=== PATIENT | male | born 1990 | race Caucasian/White ===

== ENCOUNTER 2017-12-16 23:15 | Emergency (ER) | payer SELFPAY ==
[~2017-12-16] VITALS: Ht 175.3 cm; Wt 90.0 kg
[~2017-12-16 23:15] MED LIST: NO MEDS
[2017-12-17 00:17] LABS: HEMATOCRIT 44.5 % (39.0-50.0); HEMOGLOBIN 16.2 g/dl (14.0-18.0); IMMATURE GRANULOCYTES 0.3 % (0.0-5.0); MEAN CELL VOLUME 90.6 fL CALC (80.0-100.0); MEAN CORPUSCULAR HGB CONC 36.4 g/L CALC (32.0-36.0); NEUT# 8.24 thou/uL (1.82-7.42); RED BLOOD COUNT 4.91 mill/uL (4.70-6.10); RED CELL DISTRI WIDTH 12.4 % (11.5-15.5)
[2017-12-17 00:19] LABS: BARBITURATES NEGATIVE (NEGATIVE); COCAINE NEGATIVE (NEGATIVE); METHADONE NEGATIVE (NEGATIVE); TETRAHYDROCANNABIONOL POSITIVE (NEGATIVE); TRICYLIC ANTIDEPRESSANTS NEGATIVE (NEGATIVE)
[2017-12-17 00:20] LABS: OXCYCODONE NEGATIVE (NEGATIVE); URINE BILIRUBIN - DIPSTICK NEGATIVE (NEGATIVE); URINE BLOOD DIPSTICK NEGATIVE (NEGATIVE); URINE COLOR YELLOW; URINE GLUCOSE - DIPSTICK NEGATIVE (NEGATIVE); URINE KETONE NEGATIVE (NEGATIVE); URINE LEUK ESTERASE NEGATIVE (NEGATIVE); URINE NITRITE - DIPSTICK NEGATIVE (Negative); URINE PROTEIN - DIPSTICK NEGATIVE (NEG-TRACE); URINE SPECIFIC GRAVITY <=1.005; URINE UROBILINOGEN - DIPSTICK 0.2 E.U./dL (0.2)
[2017-12-17 00:21] LABS: URINE CLARITY CLEAR
[2017-12-17 00:31] VITALS: BP 141/86
[2017-12-17 00:31] LABS: ALBUMIN 4.5 g/dL (3.2-5.0); ALKALINE PHOSPHATASE 91 u/l (38-126); ANION GAP 18 (6-22 (CALC)); BILIRUBIN, TOTAL 0.9 mg/dL (0.0-1.4); BUN 9 mg/dL (9-20); BUN/CREATININE RATIO 12 (12-20 (CALC)); CARBON DIOXIDE 22 mmol/l (22-30); CHLORIDE 102 mmol/l (95-108); CREATININE 0.8 mg/dL (0.7-1.3); ETHYL ALCOHOL 0 mg/dl (0-30); GFR > 60 ML/MIN (>=60 (CALC)); GFR FOR AFR.AMER. > 60 ML/MIN (>=60 (CALC)); POTASSIUM 3.1 mmol/l (3.5-5.1); SGOT/AST 22 u/l (17-59); SGPT/ALT 28 u/l (21-72); SODIUM 138 mmol/l (137-146); TOTAL PROTEIN 7.7 g/dL (6.3-8.2)
[2017-12-17 00:42] LABS: MYOGLOBIN 75 ng/mL (0 - 121)
[2017-12-17] MEDS ORDERED: ATIVAN0.5 MG PO (16:46)
== END 2017-12-17 00:28 | disposition left against medical advice (07) | DRG 894 ==
LOC: ED 23:15
PROVIDERS: Emergency Medicine
DX: F15.10 Other stimulant abuse, uncomplicated (principal); R00.2 Palpitations; F17.210 Nicotine dependence, cigarettes, uncomplicated; Z91.19 Patient's noncompliance with other medical treatment and regimen

== ENCOUNTER 2017-12-17 15:56 | Emergency (ER) | payer SELFPAY ==
[~2017-12-17] VITALS: Ht 175.3 cm; Wt 64.0 kg
[2017-12-17] MEDS ORDERED: ATIVAN0.5 MG PO (16:46)
[2017-12-17 16:49] VITALS: BP 115/83
[2017-12-17 17:03] LABS: URINE BLOOD DIPSTICK NEGATIVE (NEGATIVE); URINE COLOR YELLOW; URINE GLUCOSE - DIPSTICK NEGATIVE (NEGATIVE); URINE KETONE 15 mg/dL (NEGATIVE); URINE LEUK ESTERASE NEGATIVE (NEGATIVE); URINE NITRITE - DIPSTICK NEGATIVE (Negative); URINE PROTEIN - DIPSTICK TRACE mg/dL (NEG-TRACE); URINE SPECIFIC GRAVITY 1.025
[2017-12-17 17:05] LABS: URINE BILIRUBIN - DIPSTICK SMALL (NEGATIVE); URINE CLARITY CLEAR
[2017-12-17 17:15] LABS: COCAINE NEGATIVE (NEGATIVE); METHADONE NEGATIVE (NEGATIVE); TETRAHYDROCANNABIONOL POSITIVE (NEGATIVE)
[2017-12-17 17:16] LABS: BARBITURATES NEGATIVE (NEGATIVE); OXCYCODONE NEGATIVE (NEGATIVE); TRICYLIC ANTIDEPRESSANTS NEGATIVE (NEGATIVE)
== END 2017-12-17 17:11 | disposition left against medical advice (07) | DRG 894 ==
LOC: ED 15:56
PROVIDERS: Emergency Medicine
DX: F15.180 Other stimulant abuse with stimulant-induced anxiety disorder (principal); F12.180 Cannabis abuse with cannabis-induced anxiety disorder; F17.210 Nicotine dependence, cigarettes, uncomplicated; Z91.19 Patient's noncompliance with other medical treatment and regimen

== ENCOUNTER 2020-08-20 14:30 | Emergency (ER) | payer SELFPAY ==
[~2020-08-20 14:30] MED LIST changes: +ATIVAN0.5 MG PO
[2020-08-20 15:00] VITALS: BP 171/101
== END 2020-08-20 14:50 | disposition left against medical advice (07) | DRG 313 ==
LOC: ED 14:30
DX: R07.9 Chest pain, unspecified (principal); F17.200 Nicotine dependence, unspecified, uncomplicated; Z63.8 Other specified problems related to primary support group; Z91.19 Patient's noncompliance with other medical treatment and regimen

== ENCOUNTER 2020-10-28 10:01 | Emergency (ER) | payer SELFPAY ==
[~2020-10-28] VITALS: Ht 175.3 cm; Wt 63.6 kg
[2020-10-28 10:32] LABS: URINE BILIRUBIN - DIPSTICK NEGATIVE (NEGATIVE); URINE BLOOD DIPSTICK NEGATIVE (NEGATIVE); URINE COLOR YELLOW; URINE GLUCOSE - DIPSTICK NEGATIVE (NEGATIVE); URINE KETONE TRACE mg/dL (NEGATIVE); URINE LEUK ESTERASE NEGATIVE (NEGATIVE); URINE PH 6.5 (4.5-8.0); URINE PROTEIN - DIPSTICK NEGATIVE (NEG-TRACE); URINE SPECIFIC GRAVITY <=1.005; URINE UROBILINOGEN - DIPSTICK 0.2 E.U./dL (0.2)
[2020-10-28 10:41] LABS: URINE NITRITE - DIPSTICK NEGATIVE (Negative)
[2020-10-28 10:45] LABS: HEMATOCRIT 43.6 % (39.0-50.0); HEMOGLOBIN 15.1 g/dl (14.0-18.0); IMMATURE GRANULOCYTES 0.3 % (0.0-5.0); MEAN CORPUSCULAR HGB 31.9 pG CALC (26.0-32.0); MEAN CORPUSCULAR HGB CONC 34.6 g/dL CAL (32.0-36.0); NEUT# 6.17 thou/uL (1.82-7.42); RED BLOOD COUNT 4.74 mill/uL (4.70-6.10); RED CELL DISTRI WIDTH 12.3 % (11.5-15.5)
[2020-10-28 10:46] LABS: ALBUMIN 3.9 g/dL (3.2-5.0); ALKALINE PHOSPHATASE 72 u/l (38-126); ANION GAP 15 (6-22 (CALC)); BILIRUBIN, TOTAL 0.8 mg/dL (0.0-1.4); BUN 13 mg/dL (9-20); BUN/CREATININE RATIO 16 (12-20 (CALC)); CARBON DIOXIDE 21 mmol/l (22-30); CHLORIDE 101 mmol/l (95-108); CPK 123 u/l (52-200); CREATININE 0.8 mg/dL (0.7-1.3); ETHYL ALCOHOL 0 mg/dl (0-30); GFR > 60 ML/MIN (>=60 (CALC)); GFR FOR AFR.AMER. > 60 ML/MIN (>=60 (CALC)); LIPASE 52 u/l (23-300); SGOT/AST 20 u/l (17-59); SODIUM 133 mmol/l (137-146); TOTAL PROTEIN 6.9 g/dL (6.3-8.2)
[2020-10-28 11:16] LABS: TSH, 3RD GENERATION 0.81 uIU/mL (0.47 - 4.68)
[2020-10-28] MEDS ORDERED: K-TAB20 MEQ PO (11:23)
[2020-10-28 12:20] VITALS: BP 140/83
== END 2020-10-28 12:29 | disposition home or self-care (01) | DRG 897 ==
LOC: ED 10:01
PROVIDERS: Family Medicine
DX: F15.951 Other stimulant use, unspecified with stimulant-induced psychotic disorder with hallucinations (principal); F12.951 Cannabis use, unspecified with psychotic disorder with hallucinations; F14.951 Cocaine use, unspecified with cocaine-induced psychotic disorder with hallucinations; E87.6 Hypokalemia; F17.200 Nicotine dependence, unspecified, uncomplicated

== ENCOUNTER 2021-02-15 09:52 | Emergency (ER) | payer SELFPAY ==
[~2021-02-15] VITALS: Ht 175.3 cm; Wt 62.0 kg
[~2021-02-15 09:52] MED LIST changes: +K-TAB20 MEQ PO
[2021-02-15 10:25] LABS: URINE BILIRUBIN - DIPSTICK NEGATIVE (NEGATIVE); URINE BLOOD DIPSTICK NEGATIVE (NEGATIVE); URINE COLOR YELLOW; URINE GLUCOSE - DIPSTICK NEGATIVE (NEGATIVE); URINE KETONE NEGATIVE (NEGATIVE); URINE LEUK ESTERASE NEGATIVE (NEGATIVE); URINE PH 7.5 (4.5-8.0); URINE PROTEIN - DIPSTICK TRACE mg/dL (NEG-TRACE); URINE UROBILINOGEN - DIPSTICK 0.2 E.U./dL (0.2)
[2021-02-15 10:26] LABS: HEMATOCRIT 44.7 % (39.0-50.0); HEMOGLOBIN 15.2 g/dl (14.0-18.0); MEAN CELL VOLUME 96.8 fL CALC (80.0-100.0); MEAN CORPUSCULAR HGB 32.9 pG CALC (26.0-32.0); NEUT# 3.91 thou/uL (1.82-7.42); RED BLOOD COUNT 4.62 mill/uL (4.70-6.10); RED CELL DISTRI WIDTH 12.5 % (11.5-15.5)
[2021-02-15 10:27] LABS: URINE NITRITE - DIPSTICK NEGATIVE (Negative)
[2021-02-15 10:36] LABS: ALBUMIN 4.4 g/dL (3.2-5.0); ALKALINE PHOSPHATASE 77 u/l (38-126); BILIRUBIN, TOTAL 1.1 mg/dL (0.0-1.4); BUN 8 mg/dL (9-20); BUN/CREATININE RATIO 11 (12-20 (CALC)); CARBON DIOXIDE 25 mmol/l (22-30); CHLORIDE 103 mmol/l (95-108); CREATININE 0.7 mg/dL (0.7-1.3); ETHYL ALCOHOL 0 mg/dl (0-30); GFR > 60 ML/MIN (>=60 (CALC)); GFR FOR AFR.AMER. > 60 ML/MIN (>=60 (CALC)); MAGNESIUM 2.2 mg/dL (1.6-2.3); SGOT/AST 23 u/l (17-59); SODIUM 137 mmol/l (137-146); TOTAL PROTEIN 7.7 g/dL (6.3-8.2)
[2021-02-15 10:37] LABS: ANION GAP 13 (6-22 (CALC))
[2021-02-15] MEDS ORDERED: VISTARIL 50MG C50 M1 PO (13:21)
[2021-02-15 13:43] VITALS: BP 129/83
== END 2021-02-15 13:43 | disposition home or self-care (01) | DRG 885 ==
LOC: ED 09:52
PROVIDERS: Emergency Medicine
DX: F33.2 Major depressive disorder, recurrent severe without psychotic features (principal); F12.980 Cannabis use, unspecified with anxiety disorder; Z63.5 Disruption of family by separation and divorce
CPT/HCPCS: J2060

== ENCOUNTER 2021-02-17 21:03 | Emergency (ER) | payer SELFPAY ==
[~2021-02-17] VITALS: Ht 175.3 cm; Wt 61.0 kg
[~2021-02-17 21:03] MED LIST changes: +VISTARIL 50MG C50 M1 PO
[2021-02-18 00:06] LABS: IMMATURE GRANULOCYTES 0.2 % (0.0-5.0); MEAN CELL VOLUME 98.1 fL CALC (80.0-100.0); MEAN CORPUSCULAR HGB 32.7 pG CALC (26.0-32.0); MEAN CORPUSCULAR HGB CONC 33.3 g/dL CAL (32.0-36.0); NEUT# 4.04 thou/uL (1.82-7.42); RED BLOOD COUNT 4.28 mill/uL (4.70-6.10); RED CELL DISTRI WIDTH 12.5 % (11.5-15.5)
[2021-02-18 00:10] LABS: URINE BILIRUBIN - DIPSTICK NEGATIVE (NEGATIVE); URINE BLOOD DIPSTICK NEGATIVE (NEGATIVE); URINE COLOR YELLOW; URINE GLUCOSE - DIPSTICK NEGATIVE (NEGATIVE); URINE KETONE NEGATIVE (NEGATIVE); URINE LEUK ESTERASE NEGATIVE (NEGATIVE); URINE NITRITE - DIPSTICK NEGATIVE (Negative); URINE PROTEIN - DIPSTICK NEGATIVE (NEG-TRACE); URINE SPECIFIC GRAVITY 1.015; URINE UROBILINOGEN - DIPSTICK 0.2 E.U./dL (0.2)
[2021-02-18 00:32] LABS: ALBUMIN 4.1 g/dL (3.2-5.0); ALKALINE PHOSPHATASE 77 u/l (38-126); ANION GAP 11 (6-22 (CALC)); BILIRUBIN, TOTAL 0.7 mg/dL (0.0-1.4); BUN 14 mg/dL (9-20); BUN/CREATININE RATIO 16 (12-20 (CALC)); CARBON DIOXIDE 26 mmol/l (22-30); CHLORIDE 105 mmol/l (95-108); CREATININE 0.9 mg/dL (0.7-1.3); ETHYL ALCOHOL 0 mg/dl (0-30); GFR > 60 ML/MIN (>=60 (CALC)); GFR FOR AFR.AMER. > 60 ML/MIN (>=60 (CALC)); POTASSIUM 3.8 mmol/l (3.5-5.1); SGOT/AST 19 u/l (17-59); SODIUM 138 mmol/l (137-146)
[2021-02-18 01:20] VITALS: BP 136/89
== END 2021-02-18 01:22 | disposition designated cancer center or children's hospital (05) | DRG 880 ==
LOC: ED 21:03
DX: R45.851 Suicidal ideations (principal); F32.A Depression, unspecified; Z20.822 Contact with and (suspected) exposure to COVID-19

== ENCOUNTER 2021-03-02 14:10 | Emergency (ER) | payer SELFPAY ==
[~2021-03-02] VITALS: Ht 175.3 cm; Wt 63.6 kg
[2021-03-02 15:35] VITALS: BP 144/83
== END 2021-03-02 15:35 | disposition home or self-care (01) | DRG 395 ==
LOC: ED 14:10
DX: K64.8 Other hemorrhoids (principal); F41.9 Anxiety disorder, unspecified